=== PATIENT | female | born 1950 | race Caucasian/White ===

== ENCOUNTER 2016-10-01 11:50 | Inpatient (IN) | payer OTHER ==
[~2016-10-01] VITALS: Ht 160 cm; Wt 70.3 kg
--- NOTE | 2016-10-01 11:57 | NUR ---
PT STATES SHE WENT TO URGENT CARE FOR ABD PAIN FOR THE PAST 3 DAYS AND THEY TOLD HER SHE NEEDED TO COME TO ED. PT REPORTS THEY TOLD HER THAT SHE HAD A LOT OF BLOOD IN HER URINE AND SHE NEEDED IMAGING.
[2016-10-01 12:29] LABS: ABSOLUTE BASOPHIL COUNT 0 /CUMM (0.0-0.2); ABSOLUTE EOSINOPHIL COUNT 0 /CUMM (0.0-0.7); ABSOLUTE LYMPH COUNT 1.6 /CUMM (1.2-3.4); ABSOLUTE MONOCYTE COUNT 0.8 /CUMM (0.10-0.60); BASOPHIL % 0.3 % (0.0-2.0); EOSINOPHIL % 0.2 % (0-5); GRANULOCYTE % 76.4 % (42.2-75.2); HEMATOCRIT 39.9 % (37-47); MEAN CORPUSCULAR HGB 32.1 PG (27.0-31.0); MEAN CORPUSCULAR HGB CONC 34.3 G/DL (33.0-37.0); MEAN CORPUSCULAR VOLUME 93.5 FL (81.0-99.0); MEAN PLATELET VOLUME 7.2 FL (7.4-10.4); PLATELET COUNT 227 /CUMM (130-400); RBC DISTRIBUTION WIDTH 13.1 % (11.5-14.5); RED BLOOD CELL CT 4.27 /CUMM (4.20-5.40); WHITE BLOOD CELL COUNT 10.4 /CUMM (4.8-10.8)
--- NOTE | 2016-10-01 13:05 | ED GI/GU/ABDOMINAL COMPLAINT ---
History of Present Illness General Chief Complaint: Abdominal Pain/Flank Pain Stated Complaint: ABD PAIN Source: patient Exam Limitations: no limitations Vital Signs & Intake/Output Vital Signs & Intake/Output Vital Signs Date Time Temp Pulse Resp B/P B/P Pulse O2 O2 Flow FiO2 Mean Ox Delivery Rate 10/01 1702 97 18 137/77 97 10/01 1350 98.2 70 20 143/74 98 Room Air 10/01 1157 98.0 78 16 151/83 95 Allergies Coded Allergies: No Known Allergies (10/01/16) Reconcile Medications Hydroxychloroquine Sulfate 200 MG TABLET 2 TAB PO DAILY RA (Reported) Triage Note: PT STATES SHE WENT TO URGENT CARE FOR ABD PAIN FOR THE PAST 3 DAYS AND THEY TOLD HER SHE NEEDED TO COME TO ED. PT REPORTS THEY TOLD HER THAT SHE HAD A LOT OF BLOOD IN HER URINE AND SHE NEEDED IMAGING. Triage Nurses Notes Reviewed? yes ? n Is pt currently ? No HPI: Ms. Kearney is a 66 yo f w/ PMH of RA on Plaquenil presenting to the ED for abdominal pain. Pt went to urgent care today and was told to come to ED. Per patient, for the past 2-3 days, she's had suprapubic abdominal pain that radiates to bilateral sides. Patient denies any radiation of the pain into her flank or back. Patient states she's had increased urinary frequency over the past 3 days as well as a burning sensation when she urinates yesterday. Patient had 3-5 episodes of nonbloody diarrhea earlier today. + subjective fevers and chills. No documented fever. Yesterday, while in kitchen, patient felt nauseated and lightheaded. Pt felt presyncopal but did not have LOC. Pt endorses decreased PO intake due to decreased appetite over the past 2-3 days. Pt has never had colonoscopy. Patient denies chest pain, shortness of breath, cough, back pain or flank pain, vomiting or constipation. States her son has UC. Past History Travel History Traveled to [place] past 21 day No Medical History Any Pertinent Medical History? see below for history Musculoskeletal: rheumatoid arthritis Surgical History Surgical History: cholecystectomy, parotid surgery Psychosocial History What is your primary language Faroese Tobacco Use: Never used ETOH Use: occasional use Illicit Drug Use: denies illicit drug use Family History Comment: Son has UC Hx Contributory? Yes Review of Systems Review of Systems Constitutional: Reports: see HPI. EENTM: Reports: no symptoms. Respiratory: Reports: no symptoms. Cardiovascular: Reports: no symptoms. GI: Reports: abdominal pain, diarrhea, nausea, changes in stool. Genitourinary: Reports: dysuria, frequency, hematuria, urgency. Musculoskeletal: Reports: no symptoms. Skin: Reports: no symptoms. Neurological/Psychological: Reports: no symptoms. Hematologic/Endocrine: Reports: no symptoms. Immunologic/Allergic: Reports: no symptoms. All Other Systems: Reviewed and Negative Physical Exam Physical Exam General Appearance: well developed/nourished, no apparent distress, alert, awake , comfortable Head: atraumatic, normal appearance Eyes: Bilateral: normal appearance, PERRL, EOMI, normal inspection. Ears, Nose, Throat, Mouth: hearing grossly normal, moist mucous membrane Neck: normal inspection, supple, full range of motion Respiratory: normal breath sounds, chest non-tender, no respiratory distress, lungs clear Cardiovascular: regular rate/rhythm Gastrointestinal: normal bowel sounds, soft, TTP over suprapubic area. No guarding or rebound. Rectal: deferred Back: normal inspection, no CVA tenderness Extremities: normal range of motion Neurologic/Psych: no motor/sensory deficits, awake, alert, oriented x 3, normal gait, normal mood/affect Skin: intact, normal color, warm/dry Core Measures ACS in differential dx? No Severe Sepsis Present: No Septic Shock Present: No Progress Differential Diagnosis: diverticulitis, ischemic bowel, inflamm bowel dis, kidney stone, PID/cervicitis, PUD/GERD, UTI/pyelo Plan of Care: Orders Procedure Date/time Status Nothing by Mouth 10/02 B Active Admit to inpatient 10/01 1840 Active URINALYSIS 10/01 1159 Complete COMPREHENSIVE METABOLIC PANEL 10/01 1159 Complete CBC WITHOUT DIFFERENTIAL 10/01 1159 Complete Current Medications Sig/Yamila Start time Last Medication Dose Stop Time Status Admin Metronidazole 500 MG IQ8 10/02 0000 UNVr (Flagyl) N/A 1 UNIT (No Carrier) Ciprofloxacin 400 MG Q12 10/01 2200 UNVr (Ciprofloxacin) Dextrose/Water 200 ML (D5W) Laboratory Tests 10/01/16 1212: Urinalysis LIGHT H, Urine Color YEL, Urine Clarity HAZY H, Urine pH 6.0, Ur Specific [place] 1.025, Urine Protein NEG, Urine Ketones 15 H, Urine Nitrite NEG, Urine Bilirubin NEG@ICTO, Urine Urobilinogen 1.0, Ur Leukocyte Esterase SMALL H, Ur Microscopic SEDIMENT EXAMINED, Urine RBC 1-3, Urine WBC 1-3 H, Ur Epithelial Cells MOD H, Urine Bacteria FEW H, Urine Mucus FEW, Urine Hemoglobin SMALL H, Urine Glucose NEG 10/01/16 1207: Anion Gap 11, Estimated GFR > 60, BUN/Creatinine Ratio 25.0, Glucose 82, Calcium 9.0, Total Bilirubin 1.1, AST 19, ALT 25, Alkaline Phosphatase 126, Total Protein 6.9, Albumin 3.8, Globulin 3.1, Albumin/Globulin Ratio 1.2, CBC w Diff NO MAN DIFF REQ, RBC 4.27, MCV 93.5, MCH 32.1 H, RDW 13.1, MPV 7.2 L, Gran % 76.4 H, Lymphocytes % 15.5 L, Monocytes % 7.6, Eosinophils % 0.2, Basophils % 0.3, Absolute Granulocytes 8.0 H, Absolute Lymphocytes 1.6, Absolute Monocytes 0.8 H, Absolute Eosinophils 0, Absolute Basophils 0, PUBS MCHC 34.3 66 yo f w/ abd pain, dysuria, and diarrhea. Differential diagnosis includes UTI , diverticulitis and ischemic bowel disease or inflammatory bowel disease. Patient is somewhat immunocompromised given the Plaquenil use. CBCs essentially unremarkable with WBC on upper side of normal w/ small left shift in neutrophils. Mild hyponatremia. UA shows mild leukocyto esterase w/ no nitrites. Mod epithelial cells w/ few bacteria. Will obtain CT abdomen and pelvis to assess for possible diverticulitis. Patient has never had a colonoscopy. She does have family history of inflammatory bowel disease (son has UC and also on immunosuppressives). Will give 1 L of IV fluids for hydration and obtain CT and reassess the patient. Patient had CT with by mouth and IV contrast. CT revealed "Scattered colonic diverticulosis, notably involving the sigmoid colon. Diffuse circumferential thickening and pericolonic inflammatory changes surrounding a segment of the sigmoid colon, spanning approximately 6 cm in length within the left lower quadrant of the abdomen. Primary diagnostic consideration is for acute sigmoid diverticulitis. There is a small focus of extraluminal air adjacent to the inflamed colon, suspicious for a contained perforation. No pericolonic fluid collections are identified." Patient having ongoing episodes of diarrhea in ED, barely able to make it to bathroom. Approx 10 episodes in 4.5 hr ED stay. Pt ordered for Abx w/ cipro/ flagyl IV. Pt made NPO. Discussed results w/ general surg. Surgery consulted. Spoke to Dr. Ramirez. Will assess patient in ED. Likely, patient will be admitted for IV Abx and monitoring to assess for abscess formation. Pt seen by Dr. Ramirez in ED. Will admit for IV abx, frequent abdominal examination, and assess hydration status. Patient having significant ongoing diarrhea, w/ dec PO intake. (KONRAD YOUNG,MIGEL) Diagnostic Imaging: Viewed by Me: CT Scan. Discussed w/RAD: CT Scan. Radiology Impression: Scattered colonic diverticulosis, notably involving the sigmoid colon. Diffuse circumferential thickening and pericolonic inflammatory changes surrounding a segment of the sigmoid colon, spanning approximately 6 cm in length within the left lower quadrant of the abdomen. Primary diagnostic consideration is for acute sigmoid diverticulitis. There is a small focus of extraluminal air adjacent to the inflamed colon, suspicious for a contained perforation. No pericolonic fluid collections are identified. Initial ED EKG: none Departure Departure Time of Disposition: 1714 Disposition: STILL A PATIENT Condition: Stable Clinical Impression Primary Impression: Perforation of sigmoid colon due to diverticulitis Ruled Out Impressions: Sigmoid diverticulitis Referrals: NEY YOUNG,SOLEDAD Mejia (PCP/Family) Departure Forms: Customer Survey General Discharge Information Admission Note Spoke With: IGLESIA YOUNG,LYNNETTE Yang Documentation of Exam: Documentation of any treatments & extenuating circumstances including Concerns Regarding Discharge (functional status, medication knowledge or non-compliance, living conditions, etc.) that warrant an admission rather than observation: Patient requires inpatient admission for IV antibiotics as well as reoccurring abdominal examinations to assess for possible peritonitis. Also, patient has ongoing signficant amount of diarrhea w/ decreased PO intake. This could lead to life-threatening electrolyte disturbance. If the patient is discharged, this could lead to increased morbidity/mortality.
--- NOTE | 2016-10-01 13:34 | NUR ---
IV EST #20 RAC
[2016-10-01] MEDS ORDERED: HYDROXYCHLOROQ200 M2 PO (13:52)
--- NOTE | 2016-10-01 15:00 | NUR ---
WENT HOME AND PT WILL CALL WHEN READY
--- NOTE | 2016-10-01 17:14 | CT SCAN REPORT ---
EXAMINATION: CT ABDOMEN AND PELVIS WITH CONTRAST CLINICAL INFORMATION: Abdominal pain. Subjective fever. COMPARISON: None. TECHNIQUE: Multidetector volumetric imaging was performed of the abdomen and pelvis before and after the IV administration of 94 mL of Optiray 320 intravenous contrast. Sagittal and coronal reformatted images were obtained on the technologist's workstation. DLP: 336 mGy-cm FINDINGS: LUNG BASES: The visualized lung bases are unremarkable. LIVER, GALLBLADDER, AND BILIARY TREE: The liver is normal in size, shape, and attenuation. There is an ill-defined focal region of hypoattenuation within the right hepatic lobe measuring approximately 1.1 cm, which is incompletely characterized on this examination. This may represent a small hepatic cyst or hemangioma. There is an additional focal region of heterogeneity within the left hepatic lobe measuring approximately 1 cm. A geographic region of hypoattenuation within the medial segment of the left hepatic lobe, adjacent to the falciform ligament is nonspecific and incompletely characterized on this examination but is typical in location for focal fatty infiltration of the liver. The gallbladder is surgically absent. PANCREAS: Unremarkable. SPLEEN: Unremarkable. ADRENAL GLANDS: Unremarkable. KIDNEYS AND URETERS: The kidneys are normal in size, shape, and attenuation. No hydronephrosis, hydroureter, or calculi seen. No perinephric stranding. BLADDER: Unremarkable. GASTROINTESTINAL TRACT: Evaluation of the bilateral kidneys and renal collecting systems is notable for a focal region of circumferential bowel wall thickening with surrounding pericolonic inflammatory changes within the proximal segment of the sigmoid colon, spanning approximately 6 cm within the left lower quadrant of the abdomen. There is scattered colonic diverticulosis of the sigmoid colon, notably in the region of circumferential thickening and pericolonic inflammatory changes. Primary diagnostic consideration is for an acute sigmoid diverticulitis. Of note, there is a small focus of air adjacent to the inflamed sigmoid colon, suspicious for a contained perforation (series 602, image 43). Abdominal and pelvic bowel loops are normal in caliber, without findings indicative of small bowel obstruction or ileus. A normal-appearing appendix is present within the right lower quadrant of the abdomen. No organizing intra-abdominal or pelvic fluid collections are identified. ABDOMINAL WALL: No significant hernia is appreciated. LYMPH NODES: No significant abdominal or pelvic adenopathy. VASCULAR: Patent abdominal vasculature. Normal course and caliber of the abdominal aorta and its branching vessels, without aneurysmal dilatation. PELVIC VISCERA: There is a large fibroid within the anterior segment of the upper to mid uterine body measuring approximately 4.6 cm in length. No adnexal masses are identified. OSSEOUS STRUCTURES: No acute osseous abnormality. Normal alignment of the thoracolumbar spine. IMPRESSION: Scattered colonic diverticulosis, notably involving the sigmoid colon. Diffuse circumferential thickening and pericolonic inflammatory changes surrounding a segment of the sigmoid colon, spanning approximately 6 cm in length within the left lower quadrant of the abdomen. Primary diagnostic consideration is for acute sigmoid diverticulitis. There is a small focus of extraluminal air adjacent to the inflamed colon, suspicious for a contained perforation. No pericolonic fluid collections are identified. This critical result was discussed with Dr. Mendy Johnson at 5:05 PM on 10/01/2016 and it was ascertained that the content and urgency of the report was understood at the time of direct communication.
--- NOTE | 2016-10-01 17:30 | NUR ---
PT TO CAT SCAN VIA STRETCHER
--- NOTE | 2016-10-01 18:56 | NUR ---
DR PAREKH AT BEDSIDE
--- NOTE | 2016-10-01 19:12 | History & Physical Pre-Op ---
General Information and HPI History of Present Illness: Patient presents to emergency room with worsening abdominal pain. She noted the onset of generalized lower abdominal pain that occurred 2 days ago. It was associated with nausea, anorexia, diarrhea and intermittent sweats. She was seen at an urgent care center earlier today and referred to the emergency room for further evaluation. She has no prior history of this type of pain before. There is no vomiting but continues to have diarrhea. Her pain now is in the lower midline and radiates to bilateral lower quadrants. Allergies/Medications Allergies: Coded Allergies: No Known Allergies (10/01/16) Home Med list Hydroxychloroquine Sulfate 200 MG TABLET 2 TAB PO DAILY RA (Reported) Past History Medical History Musculoskeletal: rheumatoid arthritis Surgical History Pertinent Surgical History: cholecystectomy, knee replacement (right), parotid surgery Past Family/Social History Family History Relations & Conditions if any SON Relation not specified for: Ulcerative colitis Psychosocial History Smoking Status: Never Smoked ETOH Use: occasional use Illicit Drug Use: denies illicit drug use Review of Systems Review of Systems: No exertional chest pain no exertional dyspnea. Abdominal symptoms per HPI. Left knee arthritis. Remainder 12 points negative Exam & Diagnostic Data Last 24 Hrs of Vital Signs/I&O Vital Signs Date Time Temp Pulse Resp B/P B/P Pulse O2 O2 Flow FiO2 Mean Ox Delivery Rate 10/01 1856 Room Air / 1702 97 18 137/77 97 /05 1350 98.2 70 20 143/74 98 Room Air 06/ 1157 98.0 78 16 151/83 95 Intake & Output 06/ 1600 06/05 0800 06/05 0000 Intake Total Output Total Balance Patient 155 lb Weight Weight Reported by Patient Measurement Method Physical Exam: Gen.: She looks her stated age. She is of average body habitus. No distress, lying on her right side HEENT: Anicteric PERRL EOMI Neck: Supple no adenopathy no JVD Abdomen: Soft and tender bilateral lower quadrants with suprapubic focal peritonitis. There is involuntary guarding. No hernias no mass Extremity: Healed right knee scar. No cyanosis clubbing or edema Last 24 Hrs of Labs/Darvin: Laboratory Tests 10/01/16 1212: Urinalysis LIGHT H, Urine Color YEL, Urine Clarity HAZY H, Urine pH 6.0, Ur Specific [place] 1.025, Urine Protein NEG, Urine Ketones 15 H, Urine Nitrite NEG, Urine Bilirubin NEG@ICTO, Urine Urobilinogen 1.0, Ur Leukocyte Esterase SMALL H, Ur Microscopic SEDIMENT EXAMINED, Urine RBC 1-3, Urine WBC 1-3 H, Ur Epithelial Cells MOD H, Urine Bacteria FEW H, Urine Mucus FEW, Urine Hemoglobin SMALL H, Urine Glucose NEG 10/01/16 1207: Anion Gap 11, Estimated GFR > 60, BUN/Creatinine Ratio 25.0, Glucose 82, Calcium 9.0, Total Bilirubin 1.1, AST 19, ALT 25, Alkaline Phosphatase 126, Total Protein 6.9, Albumin 3.8, Globulin 3.1, Albumin/Globulin Ratio 1.2, CBC w Diff NO MAN DIFF REQ, RBC 4.27, MCV 93.5, MCH 32.1 H, RDW 13.1, MPV 7.2 L, Gran % 76.4 H, Lymphocytes % 15.5 L, Monocytes % 7.6, Eosinophils % 0.2, Basophils % 0.3, Absolute Granulocytes 8.0 H, Absolute Lymphocytes 1.6, Absolute Monocytes 0.8 H, Absolute Eosinophils 0, Absolute Basophils 0, PUBS MCHC 34.3 Diagnostic Data Other Results CT scan of the abdomen pelvis with oral and IV contrast was personally reviewed. The finding show focal inflammatory changes of the proximal sigmoid colon with a small amount of pericolonic inflammation and gas. There is no free air. No free fluid. Assessment/Plan Assessment/Plan: 66-year-old woman, relatively healthy, with first episode of what appears to be acute diverticulitis with microperforation, contained. At this point there is no need for emergent surgical intervention. There is a small perforation that appears to be contained. She'll be treated medically with IV antibiotics (broad -spectrum), bowel rest and hydration. Serial abdominal examinations will be undertaken. Deterioration in her clinical status may warrant surgical intervention. As Ranked By This Provider Problem List: 1. Perforation of sigmoid colon due to diverticulitis Copies To: NEY YOUNG,SOLEDAD Mejia
--- NOTE | 2016-10-01 19:21 | NUR ---
CIPRO IV INFUSING.
--- NOTE | 2016-10-01 20:10 | Admission Core Measures ---
Admission Lab Results I reviewed the following labs: Laboratory Tests 10/01 10/01 1212 1207 Chemistry Sodium (137 - 145 mmol/L) 136 L Potassium (3.5 - 5.1 mmol/L) 3.9 Chloride (98 - 107 mmol/L) 100 Carbon Dioxide (22 - 30 mmol/L) 25 Anion Gap (5 - 16) 11 BUN (7 - 17 mg/dL) 15 Creatinine (0.5 - 1.0 mg/dL) 0.6 Estimated GFR (>60 ml/min) > 60 BUN/Creatinine Ratio (7 - 25 %) 25.0 Glucose (65 - 99 mg/dL) 82 Calcium (8.4 - 10.2 mg/dL) 9.0 Total Bilirubin (0.2 - 1.3 mg/dL) 1.1 AST (14 - 36 U/L) 19 ALT (9 - 52 U/L) 25 Alkaline Phosphatase (<127 U/L) 126 Total Protein (6.3 - 8.2 g/dL) 6.9 Albumin (3.5 - 5.0 g/dL) 3.8 Globulin (1.9 - 4.2 gm/dL) 3.1 Albumin/Globulin Ratio (1.1 - 2.2 %) 1.2 Hematology CBC w Diff NO MAN DIFF REQ WBC (4.8 - 10.8 /CUMM) 10.4 RBC (4.20 - 5.40 /CUMM) 4.27 Hgb (12.0 - 16.0 G/DL) 13.7 Hct (37 - 47 %) 39.9 MCV (81.0 - 99.0 FL) 93.5 MCH (27.0 - 31.0 PG) 32.1 H RDW (11.5 - 14.5 %) 13.1 Plt Count (130 - 400 /CUMM) 227 MPV (7.4 - 10.4 FL) 7.2 L Gran % (42.2 - 75.2 %) 76.4 H Lymphocytes % (20.5 - 51.1 %) 15.5 L Monocytes % (1.7 - 9.3 %) 7.6 Eosinophils % (0 - 5 %) 0.2 Basophils % (0.0 - 2.0 %) 0.3 Absolute Granulocytes (1.4 - 6.5 /CUMM) 8.0 H Absolute Lymphocytes (1.2 - 3.4 /CUMM) 1.6 Absolute Monocytes (0.10 - 0.60 /CUMM) 0.8 H Absolute Eosinophils (0.0 - 0.7 /CUMM) 0 Absolute Basophils (0.0 - 0.2 /CUMM) 0 PUBS MCHC (33.0 - 37.0 G/DL) 34.3 Urines Urinalysis LIGHT H Urine Color (YEL,AMB,STR) YEL Urine Clarity (CLEAR) HAZY H Urine pH (5.0 - 8.0) 6.0 Ur Specific [place] (1.001 - 1.035) 1.025 Urine Protein (NEG,<30 MG/DL) NEG Urine Ketones (NEG) 15 H Urine Nitrite (NEG) NEG Urine Bilirubin (NEG) NEG@ICTO Urine Urobilinogen (0.1 - 1.0 EU/dl) 1.0 Ur Leukocyte Esterase (NEG) SMALL H Ur Microscopic SEDIMENT EXAMINED Urine RBC (0 - 5 /HPF) 1-3 Urine WBC (0 - 2 /HPF) 1-3 H Ur Epithelial Cells (NONE,FEW) MOD H Urine Bacteria (NEG/NONE) FEW H Urine Mucus (FEW,NONE) FEW Urine Hemoglobin (NEG) SMALL H Urine Glucose (N MG/DL) NEG Admission Meds I reviewed the following Meds: Current Medications Sig/Yamila Start time Last Medication Dose Stop Time Status Admin Acetaminophen 650 MG Q6PRN PRN 10/01 2014 UNVr (Tylenol) Ampicillin Sodium/ 1,500 MG Q6 10/01 2359 UNVr Sulbactam Sodium (Unasyn) Sodium Chloride 100 ML (Normal Saline 0.9%) Ciprofloxacin 400 MG ONCE ONE 10/01 1914 AC 10/01 (Ciprofloxacin) 10/01 2013 1920 Dextrose/Water 200 ML (D5W) Dextrose/Sodium 1,000 ML .Q8H 10/01 2014 UNVr Chloride (D5-Normal Saline) Heparin Sodium 5,000 UNIT Q8 10/010 UNVr (Porcine) Metronidazole 500 MG ONCE ONE 10/01 1914 AC (Flagyl) 10/01 2013 N/A 1 UNIT (No Carrier) Morphine Sulfate 2 MG Q3P PRN 10/01 2014 UNVr (Morphine) Morphine Sulfate 4 MG Q3P PRN 10/01 2014 UNVr (Morphine) Ondansetron HCl 4 MG Q8P PRN 10/01 2014 UNVr (Zofran) Acute Coronary Syndrome Inclusion Criteria ACS Diagnosis No Inpatient Core Measures LDL Reminder: If No, please order W/I first 24hr of stay Congestive Heart Failure Inclusion Criteria CHF Diagnosis No Cerebrovascular accident Inclusion Criteria CVA/TIA Diagnosis No Inpatient Core Measures Bedside Swallow Eval Reminder: If BSE failed, place ST order Antithrombotic Reminder: Order Antithrombotic Medication by end of day 2 Antithrombotic Reminder: Document Reason Antithrombotic Not ordered by end of day 2 AFIB/Flutter Reminder: If Present, add to problem list AFIB/Flutter Reminder: Order Anticoag Medication for pts with AFIB/Flutter Atherosclerosis Reminder: If Present, add to problem list LDL Reminder: If No, please order W/I first 24hr of stay PT Order Reminder: If No, please order Venous thromboembolism Inpatient Core Measures VTE Risk Factors: Acute medical illness, Age > 40 [facility]t No contraindications No VTE Pharm Prophylaxis d/t No contraindications Inclusion Criteria - Per Current guidelines, there needs to be overlap - treatment for the first 5 days of Warfarin therapy. - Parenteral Anticoagulation (IV or SC) needs to be - given along with Warfarin therapy. VTE Diagnosis No VTE Type NONE VTE Confirmed by (Test) NONE Problem List As ranked by this Provider includes Assessment & Plan 1. Perforation of sigmoid colon due to diverticulitis HOME MEDS Home Med List Hydroxychloroquine Sulfate 200 MG TABLET 2 TAB PO DAILY RA (Reported)
--- NOTE | 2016-10-01 20:20 | NUR ---
PT REPORTED NAUSEA FOR ZOFRAN 4 MG IV ADMINISTERED.
--- NOTE | 2016-10-01 20:24 | NUR ---
FLAGYL NOW INFUSING.
--- NOTE | 2016-10-01 22:10 | NUR ---
PT GOING TO ROOM 224-2.
--- NOTE | 2016-10-01 22:14 | NUR ---
PT DECLINED HEPARIN.
--- NOTE | 2016-10-01 23:00 | NUR ---
PT ARRIVED TO 2NA, A&O, CALM/COOPERATIVE. PT CURRENTLY DENYING NAUSEA. IVF INFUSING. PT ORIENTED TO STAFF, ROOM, AND CALL BIGGS. RN WILL CONTINUE TO MONITOR.
[2016-10-01 23:24] VITALS: BP 114/60
[2016-10-02 06:54] VITALS: BP 100/62
[2016-10-02 08:50] LABS: ABSOLUTE BASOPHIL COUNT 0 /CUMM (0.0-0.2); ABSOLUTE EOSINOPHIL COUNT 0.1 /CUMM (0.0-0.7); ABSOLUTE GRANULOCYTE CT 5.3 /CUMM (1.4-6.5); ABSOLUTE LYMPH COUNT 1.2 /CUMM (1.2-3.4); ABSOLUTE MONOCYTE COUNT 0.4 /CUMM (0.10-0.60); BASOPHIL % 0.4 % (0.0-2.0); GRANULOCYTE % 74.9 % (42.2-75.2); HEMATOCRIT 35.3 % (37-47); MEAN CORPUSCULAR HGB 32.1 PG (27.0-31.0); MEAN CORPUSCULAR VOLUME 94.3 FL (81.0-99.0); MEAN PLATELET VOLUME 7.9 FL (7.4-10.4); PLATELET COUNT 180 /CUMM (130-400); RBC DISTRIBUTION WIDTH 12.8 % (11.5-14.5); RED BLOOD CELL CT 3.74 /CUMM (4.20-5.40); WHITE BLOOD CELL COUNT 7.1 /CUMM (4.8-10.8)
--- NOTE | 2016-10-02 10:06 | PN- General Surgery ---
Surgical Brief Attending Note Brief Attending Note: IMPROVED EXAM BUT STILL WITH FOCAL SUPRAPUBIC AND RLQ PERITONITIS. CONTINUE CARES ORDERED. OK FOR ICE/WATER.
[2016-10-02 14:14] VITALS: BP 110/60
[2016-10-02 22:31] VITALS: BP 116/60
[2016-10-03 06:03] VITALS: BP 118/74
[2016-10-03 07:55] LABS: ABSOLUTE BASOPHIL COUNT 0 /CUMM (0.0-0.2); ABSOLUTE EOSINOPHIL COUNT 0.2 /CUMM (0.0-0.7); ABSOLUTE GRANULOCYTE CT 2.2 /CUMM (1.4-6.5); ABSOLUTE LYMPH COUNT 1.6 /CUMM (1.2-3.4); ABSOLUTE MONOCYTE COUNT 0.5 /CUMM (0.10-0.60); BASOPHIL % 0.6 % (0.0-2.0); GRANULOCYTE % 48.5 % (42.2-75.2); HEMATOCRIT 35.3 % (37-47); MEAN CORPUSCULAR HGB 31.9 PG (27.0-31.0); MEAN CORPUSCULAR HGB CONC 33.5 G/DL (33.0-37.0); MEAN CORPUSCULAR VOLUME 95.3 FL (81.0-99.0); MEAN PLATELET VOLUME 7.6 FL (7.4-10.4); PLATELET COUNT 194 /CUMM (130-400); RBC DISTRIBUTION WIDTH 12.9 % (11.5-14.5); RED BLOOD CELL CT 3.71 /CUMM (4.20-5.40); WHITE BLOOD CELL COUNT 4.4 /CUMM (4.8-10.8)
[2016-10-03 14:19] VITALS: BP 112/62
--- NOTE | 2016-10-03 14:23 | NUR ---
SHIFT NOTE PT A&OX3. AMBULATING INDEPENDENTLY OOB. DIET ADVANCED TO CLEAR LIQUIDS, PT TOLERATING AT THIS TIME. REMAINS ON IV UNASYN AND FLUIDS. DENIES PAIN/DISCOMFORT. HAD ONE LOOSE BM TODAY, SURGICAL PA ASHLY STAPLES AWARE. PT REFUSES ALPS/HEPARIN, ASHLY STAPLES ALSO INFORMED OF THAT. PT AMBULATED FREQUENTLY. SAFETY MAINTAINED. NEEDS IN REACH.
--- NOTE | 2016-10-03 18:31 | PN- General Surgery ---
Subjective Subjective: Reports improvement, tolerating sips. Objective Vital Signs and I&Os Vital Signs Date Time Temp Pulse Resp B/P B/P Pulse O2 O2 Flow FiO2 Mean Ox Delivery Rate 10/03 1419 98.2 61 20 112/62 96 10/03 0603 97.8 59 18 118/74 94 Room Air 10/02 2231 97.9 63 20 116/60 95 Intake & Output 10/03 1600 10/03 0800 10/03 0000 10/02 1600 10/02 0800 10/02 0000 Intake Total 730 200 408 187 8000 Output Total 300 200 300 400 650 Balance 430 0 100 340 350 Intake, IV 700 928 335 8833 Intake, Oral 30 200 40 0 Number 1 Bowel Movements Output, Urine 300 200 300 400 650 Patient 155 lb Weight Weight Reported by Patient Measurement Method Physical Exam: General: Alert and oriented x3, no acute distress Cards: RRR, s1s2 Pulm: CTA bilaterally ABD: Focal tenderness therese umbilical with deep palpation, non-distended Extremities: Calves soft and non-tender Assessment/Plan Assessment/Plan Discussed with Dr. Ramirez today, will try clears and regress if not tolerating Core Measures/Miscellaneous Venous Thromboembolism VTE Risk Factors: Age > 40 VTE Contraindications: No Contraindications VTE Diagnosis: No VTE Type: NONE VTE Confirmed by (Test): NONE Beta Christy Is Beta Christy a Home Med? No Antibiotics Is Patient on Antibiotics? No
--- NOTE | 2016-10-03 18:39 | NUR ---
PT TOLERATED CLEAR LIQUID DIET FOR DINNER, STATED FEELING OF "FULLNESS" AFTER, BUT DENIED NAUSEA OR PAIN. +BS X 4. WILL CONTINUE TO MONITOR.
--- NOTE | 2016-10-03 21:24 | NUR ---
PT CONTINUES TO REPORT HEADACHE MAINLY OVER RIGHT EYE. RECEIVED TYLENOL ON DAY SHIFT WITH MINIMAL RELIEF. GIVEN TYLENOL PO AT THIS TIME. CALL PLACED TO SURGICAL PA TO MAKE AWARE. VSS. NO NAUSEA. NO LIGHT SENSITIVITY. STATES THAT THE HEADACHES STARTED YESTERDAY. SURGICAL PA ORDERED IV TORADOL, HOWEVER PT STATES SHE CAN NOT TAKE THIS MEDICATION "I GOT IT IN THE PAST AND IT MADE ME VOMIT FOR 5 DAYS" REFUSING THIS MED AT THIS TIME. WILL CONTINUE TO MONITOR
[2016-10-03 21:55] VITALS: BP 140/82
[2016-10-04 06:25] VITALS: BP 120/78
--- NOTE | 2016-10-04 07:56 | PN- General Surgery ---
See Addendum Subjective Subjective: Patient continues to feel better. She is tolerating clears. Had bowel movements, is voiding well. No nausea no vomiting. Has mild suprapubic pain especially with palpation of the area. Objective Vital Signs and I&Os Vital Signs Date Time Temp Pulse Resp B/P B/P Pulse O2 O2 Flow FiO2 Mean Ox Delivery Rate 10/04 624 97.9 58 18 120/78 95 Room Air 10/03 2155 97.8 60 20 140/82 96 Room Air 10/03 1419 98.2 61 20 112/62 96 Intake & Output 10/04 1600 10/04 0800 10/04 0000 10/03 1600 10/03 0800 10/03 0000 Intake Total 360 200 730 200 400 Output Total 300 200 300 Balance 360 200 430 0 100 Intake, IV 240 200 700 400 Intake, Oral 120 30 200 Number 1 Bowel Movements Output, Urine 300 200 300 Physical Exam: Well-developed well-nourished no apparent distress. HEENT: Atraumatic, extraocular motion intact Neck: Supple, no lymphadenopathy Respiratory: No respiratory distress Abdomen: Mild tenderness in the suprapubic region. Soft, normal bowel sounds Extremities: No edema, no calf pain Neuro: Alert and oriented x3 Psych: Mood affect normal, normal memory normal judgment. Skin: Warm and dry, no rash on exposed skin Results Last 48 Hours of Labs: Laboratory Tests 10/03 604 Chemistry Sodium (137 - 145 mmol/L) 142 Potassium (3.5 - 5.1 mmol/L) 4.0 Chloride (98 - 107 mmol/L) 109 H Carbon Dioxide (22 - 30 mmol/L) 28 Anion Gap (5 - 16) 5 BUN (7 - 17 mg/dL) 5 L Creatinine (0.5 - 1.0 mg/dL) 0.5 Estimated GFR (>60 ml/min) > 60 BUN/Creatinine Ratio (7 - 25 %) 10.0 Hematology CBC w Diff NO MAN DIFF REQ WBC (4.8 - 10.8 /CUMM) 4.4 L RBC (4.20 - 5.40 /CUMM) 3.71 L Hgb (12.0 - 16.0 G/DL) 11.8 L Hct (37 - 47 %) 35.3 L MCV (81.0 - 99.0 FL) 95.3 MCH (27.0 - 31.0 PG) 31.9 H RDW (11.5 - 14.5 %) 12.9 Plt Count (130 - 400 /CUMM) 194 MPV (7.4 - 10.4 FL) 7.6 Gran % (42.2 - 75.2 %) 48.5 Lymphocytes % (20.5 - 51.1 %) 35.6 Monocytes % (1.7 - 9.3 %) 11.3 H Eosinophils % (0 - 5 %) 4.0 Basophils % (0.0 - 2.0 %) 0.6 Absolute Granulocytes (1.4 - 6.5 /CUMM) 2.2 Absolute Lymphocytes (1.2 - 3.4 /CUMM) 1.6 Absolute Monocytes (0.10 - 0.60 /CUMM) 0.5 Absolute Eosinophils (0.0 - 0.7 /CUMM) 0.2 Absolute Basophils (0.0 - 0.2 /CUMM) 0 PUBS MCHC (33.0 - 37.0 G/DL) 33.5 Assessment/Plan Assessment/Plan Hospital day #3 for microperforation of diverticulitis Continue Unasyn Advance to low residue diet for lunch Possible discharge this afternoon if tolerates diet and pain is controlled Follow-up with Dr. Ramirez as outpatient next week Core Measures/Miscellaneous Venous Thromboembolism VTE Risk Factors: Age > 40 VTE Contraindications: No Contraindications VTE Diagnosis: No VTE Type: NONE VTE Confirmed by (Test): NONE Beta Christy Is Beta Christy a Home Med? No Antibiotics Is Patient on Antibiotics? No
[2016-10-04] MEDS ORDERED: AUGMENTIN 875-1 EACH PO (08:12)
--- NOTE | 2016-10-04 08:15 | Patient Discharge Instructions ---
Discharge Instructions General Discharge Information You were seen/treated for: PERFORATED DIVERTICULITIS You had these procedures: NONE Watch for these problems: Worsening pain, nausea, vomiting, fever Special Instructions: Call Dr. Ramirez's office for an appointment in 1 week Continue your antibiotics Diet Continue normal diet: No Recommended Diet: Low Residue Activity Full Activity/No Limits: No Activity Self Limited: Yes Acute Coronary Syndrome Inclusion Criteria At DC or during hospital stay patient has or had the following: ACS DIAGNOSIS No Discharge Core Measures Meds if any: Prescribed or Continued at Discharge Meds if any: NOT Prescribed or Continued at Discharge Congestive Heart Failure Inclusion Criteria At DC or during hospital stay patient has or had the following: CHF DIAGNOSIS No Discharge Core Measures Meds if any: Prescribed or Continued at Discharge Meds if any: NOT Prescribed or Continued at Discharge Cerebrovascular accident Inclusion Criteria At DC or during hospital stay patient has or had the following: CVA/TIA Diagnosis No Discharge Core Measures Meds if any: Prescribed or Continued at Discharge Meds if any: NOT Prescribed or Continued at Discharge Venous thromboembolism Inclusion Criteria VTE Diagnosis No VTE Type NONE VTE Confirmed by (Test) NONE Discharge Core Measures - Per Current guidelines, there needs to be overlap - treatment for the first 5 days of Warfarin therapy. - If discharged on Warfarin prior to 5 days of - overlap therapy, the patient will need to be - assessed for post discharge needs including - *Post discharge parental anticoagulation - *Warfarin and/or parental anticoagulation education - *Follow up date to check INR post discharge At least 5 days overlap therapy as Inpatient No Meds if any: Prescribed or Continued at Discharge Note: Overlap Therapy is Warfarin and Anticoagulant Meds if any: NOT Prescribed or Continued at Discharge
--- NOTE | 2016-10-06 13:44 | Surgical Discharge Summary ---
Visit Information Visit Dates Admission Date: 10/01/16 Discharge Date: 10/04/16 History of Present Illness Chief Complaint: ABDOMINAL PAIN Medical History Blood Transfusion Hx: No Neurological: NONE EENT: NONE Cardiovascular: NONE Respiratory: NONE Gastrointestinal: NONE Hepatic: NONE Renal: NONE Musculoskeletal: rheumatoid arthritis Psychiatric: NONE Endocrine: NONE Blood Disorders: NONE Cancer(s): NONE EMERGENCY MANAGEMENT SPECIALIST/Reproductive: NONE History of MRSA: No History of VRE: No History of CDIFF: No Isolation History: Standard Surgical History Pertinent Surgical History: cholecystectomy, knee replacement (right), parotid surgery Family History Relations & Conditions If Any: SON Relation not specified for: Ulcerative colitis Psychosocial History Where Do You Live? Home Who Do You Live With? Family Services at Home: None What is Your Primary Language? Libyan ETOH Use: occasional use Review of Systems: NOT ASSESSED AT D/C Hospital Course Course Attending Physician: LYNNETTE PAREKH MD Primary Care Physician: SOLEDAD BREWSTER MD Hospital Course: ADMITTED FOR BOWEL REST AND IV BROAD SPECTRUM ABX FOR PERFORATED SIGMOID DIVERTICULITIS. SHE RESPONDED TO MEDICAL MANAGEMENT. DIET WAS ADVANCED. PATIENT DISCHARGED. WILL NEED OUTPATIENT COLONOSCOPY AFTER RECOVERED. Allergies: Coded Allergies: No Known Allergies (10/01/16) Disposition Summary Disposition Principal Diagnosis: SIGMOID DIVERTICULITIS WITH MICROPERFORATION. Additional Diagnosis: NONE Discharge Disposition: home or self care Discharge Instructions General Discharge Information Code Status: Full Code Patient's Diet: LOW RESIDUE Patient's Activity: SELF LIMITED Follow-Up Instructions/Appts: TWO WEEKS Medications at Discharge Discharge Medications: Continue taking these medications: Hydroxychloroquine Sulfate (Hydroxychloroquine Sulfate) 200 MG TABLET 2 Tablet ORAL DAILY Qty = 180 Start taking the following new medications: Amoxicillin/Potassium Clav (Augmentin 875-125 Tablet) 875 MG-125 MG TABLET 1 Tablet ORAL TWICE DAILY Qty = 20 No Refills Copies To: NEY YOUNG,SOLEDAD Mejia
== END 2016-10-04 14:20 | DRG 392 ==
LOC: ERH 11:50 → 2NA 18:40 → ERHI 18:40 → ENRESERV 22:02 → ENTRNSPT 22:37 → EDTRNSPTTYP 22:39 → 2NA 22:53 → CMPTRNSPT 10-02 07:00 → 2NA 10-02 11:38 → ENPENDDIS 10-04 08:17 → 2NA 10-04 14:20
PROVIDERS: Emergency Medicine; Physician Assistant; Physician Assistant Surgical; ADMIT Surgery
DX: K57.20 Diverticulitis of large intestine with perforation and abscess without bleeding (principal); M06.9 Rheumatoid arthritis, unspecified
CPT/HCPCS: 2NASP; 36415; 74177; 81001; 82436; 96374; 96375; J0744; J1644; J1885; J2405; J7042; J7060